=== PATIENT | male | born 1975 | race Hispanic/Latino ===

== ENCOUNTER 2022-09-08 12:49 | Emergency (ER) | payer OTHER ==
[~2022-09-08] VITALS: Ht 170.2 cm; Wt 106.7 kg
[2022-09-08] MEDS ORDERED: METFORMIN HCL850 MG PO (13:24)
[2022-09-08] MEDS ORDERED: OMEPRAZOLE40 MG PO (13:24)
[2022-09-08] MEDS ORDERED: FOLIC ACID0.8 MG (13:24)
[2022-09-08] MEDS ORDERED: VENLAFAXINE H37.5 M2 PO (13:24)
[2022-09-08] MEDS ORDERED: VITAMIN D3125 MCG (13:24)
[2022-09-08] MEDS ORDERED: GLIPIZIDE ER5 MG PO (13:24)
[2022-09-08] MEDS ORDERED: NIFEDIPINE ER30 M1 PO (13:24)
[2022-09-08] MEDS ORDERED: DIOVAN80 MG PO (13:24)
[2022-09-08] MEDS ORDERED: METHOTREXA25 MG/1 ML SC (13:24)
[2022-09-08] MEDS ORDERED: METOPROLOL TART50 MG PO (13:24)
[2022-09-08] MEDS ORDERED: ATORVASTATIN CA20 MG PO (13:24)
[2022-09-08] MEDS ORDERED: GABAPENTIN100 MG PO (13:49)
[2022-09-08] MEDS ORDERED: CEFDINIR300 MG PO (13:49)
[2022-09-08] MEDS ORDERED: VALACYCLOVIR500 MG PO (13:49)
== END 2022-09-08 14:01 | disposition home or self-care (01) ==
LOC: FSED 12:56
DX: G51.0 Bell's palsy (principal); H66.92 Otitis media, unspecified, left ear; E11.65 Type 2 diabetes mellitus with hyperglycemia; I10 Essential (primary) hypertension; E78.5 Hyperlipidemia, unspecified; K21.9 Gastro-esophageal reflux disease without esophagitis; M06.9 Rheumatoid arthritis, unspecified; F41.9 Anxiety disorder, unspecified
CPT/HCPCS: 70450; 80053; 81003; 82553; 84484; 85025; 93005; 99284